=== PATIENT | male | born 1950 | race Caucasian/White ===

== ENCOUNTER → 2016-08-25 | Outpatient (CLI) | payer OTHER ==
[~2016-08-25] VITALS: Ht 185.4 cm; Wt 111.9 kg
[~2016-08-25] MED LIST: ASPIR 8181 MG PO; LIPITOR10 MG PO; LISINOPRIL-HCT1 EAC2 PO; MOBIC15 MG PO; NEXIUM40 MG PO
--- NOTE | ~2016-08-25 | HPC ---
[facility] [address] [place] [address] PAIN MANAGEMENT CONSULTATION Name: ROSEY BOLES Room #: REG CATARINO Matias#: [id number] Admission: 08/25/16 Attend Phys: Roldan Trinidad DO Discharge: Date of : 48 Report #: [id number] THIS REPORT FOR: //name// CC: Maxx Trinidad HISTORY OF PRESENT ILLNESS: The patient is a pleasant 66-year-old gentleman being treated for symptomatic lumbar spondylosis. Had a diagnostic L4-L5 and L5-S1 facet joint injections 08/19/2016 (bilateral) with good yet transient relief of symptoms. He presents to pain clinic today for a medial branch dorsal rami diagnostic block of the L4-L5 and L5-S1 facet joints (medial branch dorsal rami L3, L4 and L5). We discussed risks and benefits today including lack of efficacy. If the patient has good transient relief will move forward with radiofrequency neurolysis of the most problematic side. ASSESSMENT: Symptomatic lumbar spondylosis. PROCEDURE: After written informed consent was obtained, the patient was taken to the fluoroscopy suite and placed in prone position. After sterile prep and drape, skin was raised. A 22-gauge stylet needle was placed to contact the right sacral alar notch corresponding to the L5 dorsal rami. Second needle was placed lateral to the superior articular process of L5, adjacent to the L4-L5 facet joint (corresponding to the L4 medial branch dorsal rami, third needle was placed lateral to the L4 superior articular process lateral to the L3-L4 facet joint) (corresponding to the L3 medial branch dorsal rami). AP and lateral projections showed good needle placement. A 1 mL of 50:50 mix of 0.5% preservative-free bupivacaine plus 1.5% preservative-free Xylocaine with 1:200,000 was injected at each site. All 3 needles removed. C-arm was turned then turned oblique to the left and the procedure was repeated on the left side. After all six needles removed. The area was cleansed, Band-Aids applied. The patient was monitored for an appropriate period of time, discharged in good and stable condition. I was pleased to notice his pain score was 0 on discharge, had been 3-4 on a 0-10 visual analog scale on admission. I will plan on moving forward 09/02/2016 with RFL of the subjective worst side at that time. Fluoroscopy time was 20 seconds. By: [id number] Roldan Trinidad DO /nt
[2016-08-25 14:59] VITALS: BP 104/74
== END | disposition home or self-care (01) ==
LOC: PAIN 06:48
DX: M47.816 Spondylosis without myelopathy or radiculopathy, lumbar region (principal)

== ENCOUNTER → 2016-09-02 | Outpatient (CLI) | payer OTHER ==
[~2016-09-02] VITALS: Ht 182.9 cm; Wt 112.8 kg
[2016-09-02 13:49] VITALS: BP 109/80
== END | disposition home or self-care (01) ==
LOC: PAIN 06:55
DX: M47.816 Spondylosis without myelopathy or radiculopathy, lumbar region (principal); M54.5 Low back pain; Z79.82 Long term (current) use of aspirin; Z79.899 Other long term (current) drug therapy; Z98.890 Other specified postprocedural states

== ENCOUNTER → 2016-09-16 | Outpatient (CLI) | payer OTHER ==
[~2016-09-16] VITALS: Ht 185.4 cm; Wt 112.8 kg
[~2016-09-16] MED LIST changes: +TRAMADOL 50 MG50 MG PO
[2016-09-16 13:09] VITALS: BP 117/83
== END | disposition home or self-care (01) ==
LOC: PAIN 06:56
DX: M47.896 Other spondylosis, lumbar region (principal); E66.09 Other obesity due to excess calories; Z68.32 Body mass index [BMI] 32.0-32.9, adult; Z79.82 Long term (current) use of aspirin; Z79.899 Other long term (current) drug therapy; Z98.890 Other specified postprocedural states

== ENCOUNTER → 2017-04-10 | Outpatient (CLI) | payer OTHER ==
[~2017-04-10] VITALS: Ht 185.4 cm; Wt 113.4 kg
[~2017-04-10] MED LIST changes: +BENADRYL25 MG PO; +GLUCOSAMINE HC500 MG PO; +HYDROCODONE-AP1 EAC6 PO; +IBUPROFEN 400400 M1 PO; +NORVASC5 MG PO; +UNICOMPLEX M TA1 TA1 PO; +VENTOLIN HFA 1818 GM INH
--- NOTE | ~2017-04-10 | HPC ---
[facility] [address] [place] [address] PAIN MANAGEMENT CONSULTATION Name: ROSEY BOLES Room #: REG [facility] Andrew.#: [id number] Admission: 04/10/17 Attend Phys: Roldan Trinidad DO Discharge: Date of : 48 Report #: [id number] THIS REPORT FOR: //name// CC: Maxx Trinidad DATE OF SERVICE: 04/10/2017 PAIN CLINIC NOTE The patient is a 66-year-old gentleman, prior seen in the pain clinic back in September for lumbar radicular pain. We had tried RFL with nominal efficacy facet joint injections have afforded a little bit better relief. Somewhat lost to follow up, returns to pain clinic today with a new complaint that being pain in the left shoulder. Denies antecedent trauma or overuse. He rates pain as 6 with movement, primarily movement of the left shoulder. He states the pain has actually been ongoing since about 2015. It seems to be getting worse with activity. PHYSICAL EXAMINATION: Shows 66-year-old gentleman, BMI is 33 kilograms per meter squared, blood pressure is elevated today 153/100, pulse 90, respirations 16. Cervical range of motion is full. Left shoulder shows pain with active and passive range of motion. He has tried physical therapy with really no efficacy. Meloxicam has afforded no change, though he does note that when he stops meloxicam, pain does get worse. Hand grasp is symmetric. Pain with palpation over the AC joint. ASSESSMENT: Symptomatic left shoulder degenerative joint disease by clinical exam and history. RECOMMENDATION: 1. Continue meloxicam. 2. Left shoulder injection under fluoroscopy today. 3. Follow up as needed. Continue physical therapy. PROCEDURE: Left shoulder injection under fluoroscopy. PROCEDURE NOTE: After written informed consent was obtained, the patient was taken to the fluoroscopy suite, placed in supine position. Skin overlying the shoulder was cleansed with ChloraPrep. Skin wheal with Xylocaine was raised. A 22-gauge stylet needle was placed to contact the proximal aspect of the humerus adjacent to the glenohumeral joint. Negative aspiration was accomplished. A 1 mL of Omnipaque injected, which showed spread within the joint. This was followed with 40 mg triamcinolone with 2 mL of 0.5 preservative-free bupivacaine. Needle was removed. The area was cleansed and Band-Aids applied. The patient was monitored for an appropriate period [place] [address] PAIN MANAGEMENT CONSULTATION Name: ROSEY BOLES Room #: REG CLI Polly#: [id number] Admission: 04/10/17 Attend Phys: Roldan Trinidad DO Discharge: Date of : 48 Report #: [id number] and stable condition, noting significant improvement in baseline pain, in fact noting pain was absent on discharge. <ELECTRONICALLY SIGNED> By: Roldan Trinidad DO 04/12/17 1417 1636 2222 Roldan Trinidad DO /bk
[2017-04-10 10:44] VITALS: BP 153/100
== END | disposition home or self-care (01) ==
LOC: PAIN 07:03
DX: M19.012 Primary osteoarthritis, left shoulder (principal); Z68.33 Body mass index [BMI] 33.0-33.9, adult

== ENCOUNTER → 2017-06-30 | Outpatient (CLI) | payer OTHER ==
[~2017-06-30] VITALS: Ht 182.9 cm; Wt 115.2 kg
[~2017-06-30] MED LIST changes: -HYDROCODONE-AP1 EAC6 PO; -IBUPROFEN 400400 M1 PO; -VENTOLIN HFA 1818 GM INH
--- NOTE | ~2017-06-30 | HPC ---
[facility] [address] [place] [address] PAIN MANAGEMENT CONSULTATION Name: BOLESROSEY Room #: REG CATARINO Morales.#: [id number] Admission: 06/30/17 Attend Phys: Roldan Trinidad DO Discharge: Date of : 48 Report #: [id number] THIS REPORT FOR: //name// CC: Maxx Trinidad HISTORY OF PRESENT ILLNESS: The patient is a pleasant 66-year-old gentleman who has been treated for lumbar spondylosis without myelopathy and bilateral shoulder DJD/osteoarthritis. We had treated lumbar facets last summer in 07/2016 and 08/2016 culminating in radiofrequency neurolysis on 09/02. He did well subsequent. He was seen in April of this year with ongoing shoulder issues. We progressed to do a left shoulder joint injection under fluoroscopy. The patient noted recurrent symptoms and had called for followup requesting repeat shoulder joint injection. He had noted 50% relief from the left shoulder. He presents to the pain clinic today with new complaint that being pain in right glute down the posterior leg down to the foot. Pain is exacerbated with standing, walking and bending. He notes a dull aching pain, rates it a 10 on a VAS. Denies antecedent trauma and overuse. He has continued with nonsteroidal anti-inflammatory medication (Meloxicam 15 mg 1 a day). Continue range of motion exercise and stretch with nominal efficacy. PHYSICAL EXAMINATION: Shows 66-year-old gentleman, BMI is 34.4 kilograms per meter squared. Blood pressure is modestly elevated at 159/96, pulse 94 and respirations 16. Rises from chair using armrest. Has a modestly antalgic gait. Grossly positive straight leg raise at 30 degrees on the right. Right dorsiflexion and lower extremity extension strength is diminished and it does exacerbate pain. Right Achilles reflex is diminished compared to the left. Patellar reflex is generally symmetric. There are no recent diagnostic studies available for evaluation at this time. ASSESSMENT: 1. Symptomatic lumbar radiculopathy by clinical exam and history, right L5 distribution. 2. Osteoarthritis, left shoulder, incremental improvement following prior injection. 3. Lumbar spondylosis without myelopathy. Symptoms remain relatively quiescent subsequent to prior RFL. RECOMMENDATIONS: 1. Continue meloxicam unchanged. 2. Follow up as needed for left shoulder injection if indicated. 3. Epidural injection under fluoroscopy today at L5-S1. PROCEDURE: Lumbar epidural injection under fluoroscopy. PROCEDURE NOTE: After both written and informed consent to include risk of [address] [address] PAIN MANAGEMENT CONSULTATION Name: ROSEY BOLES Room #: REG CLI Polly#: [id number] Admission: 06/30/17 Attend Phys: Roldan Trinidad DO Discharge: Date of : 48 Report #: [id number] spinal cord damage, increased pain, weakness and dural puncture, the patient was taken to the fluoroscopy suite, placed in the prone position. After sterile prep and drape, a skin wheal with lidocaine was raised. A 22-gauge epidural Tuohy needle was inserted in the midline at L5-S1 with good loss to resistance. Negative aspiration for cerebrospinal fluid or blood was noted. Then 1 mL of Omnipaque under biplanar fluoroscopy showed good spread within the epidural space. This was followed with 80 mg of triamcinolone plus 1 mL of 1.5% preservative-free Xylocaine, 0.5 mL Xylocaine was then injected to flush the needle; it was removed. The patient was monitored for an appropriate period of time and discharged in good and stable condition. <ELECTRONICALLY SIGNED> By: Roldan Trinidad DO 07/03/17 0830 1514 0206 Roldan Trinidad DO /nt
[2017-06-30 12:47] VITALS: BP 159/96
== END | disposition home or self-care (01) ==
LOC: PAIN 05-04 13:19
DX: M54.16 Radiculopathy, lumbar region (principal); M47.896 Other spondylosis, lumbar region; M19.012 Primary osteoarthritis, left shoulder; Z79.82 Long term (current) use of aspirin; Z79.899 Other long term (current) drug therapy; Z98.890 Other specified postprocedural states

== ENCOUNTER → 2017-07-17 | Outpatient (CLI) | payer OTHER ==
[~2017-07-17] VITALS: Ht 182.9 cm; Wt 111.6 kg
[~2017-07-17] MED LIST changes: +VENTOLIN HFA 1818 GM INH
--- NOTE | ~2017-07-17 | HPC ---
[facility] [address] [place] [address] PAIN MANAGEMENT CONSULTATION Name: ROSEY BOLES Room #: REG Liliana Morales.#: [id number] Admission: 07/17/17 Attend Phys: Roldan Trinidad DO Discharge: Date of : 48 Report #: [id number] THIS REPORT FOR: //name// CC: Maxx Trinidad DATE OF SERVICE: 07/17/2017 PAIN CLINIC NOTE HISTORY OF PRESENT ILLNESS: The patient is a 66-year-old gentleman, last seen on 06/30/2017 diagnosed with symptomatic lumbar radiculopathy, component of lumbar and lumbosacral spondylosis without myelopathy to the bilateral shoulder osteoarthritis. Last seen in the pain clinic on 06/30/2017, we did an epidural injection L5-S1. Returns to pain clinic today noting that the procedure afforded 90% relief for 4 days with pain returned. He feels it may be worst in the right buttock, lateral thigh, lateral calf, ankle to toes, and feels like the foot is asleep. PHYSICAL EXAMINATION: Shows a 66-year-old gentleman, BMI 33.4 kilograms per meter squared, blood pressure is 143/79, pulse 86, respirations 16. Rises from chair using armrest, modestly antalgic gait, positive straight leg raise on the right. Objective decreased strength in the right lower extremity to dorsiflexion and hip flexion. DIAGNOSTIC STUDIES: There are no recent diagnostic studies available for evaluation at this time. The patient is anxious to travel to [place] this weekend. His son is graduating from [employer]. 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 Discussion with the patient today about therapeutic options. RECOMMENDATIONs: We will get an MRI of the lumbar spine. May benefit from repeat epidural injection, but will want more of a targeted approach perhaps left L4 or L5 transforaminal epidural injection depending on MRI and clinical findings. The patient does have some tramadol which he can take. He is taking it with nominal efficacy. I offered the hydrocodone tablet, but he was loathed stronger opiate analgesics. I suggest he continue with tramadol taken concurrently with a single extra strength Tylenol. There is some Synergy with this agent. We will order the MRI of the lumbar spine for right L4-L5 radiculopathy. Follow [address] [address] PAIN MANAGEMENT CONSULTATION Name: ROSEY BOLES Room #: REG CATARINO Matias#: [id number] Admission: 07/17/17 Attend Phys: Roldan Trinidad DO Discharge: Date of : 46 Report #: [id number] up next week for consideration for transforaminal epidural injection under fluoroscopy. Again, guided by imaging. Discharged in good and stable condition. By: 1115 15 Roldan Trinidad, DO /nt
[2017-07-17 09:48] VITALS: BP 143/79
== END ==
LOC: PAIN 06:52
DX: M47.817 Spondylosis without myelopathy or radiculopathy, lumbosacral region (principal); M54.16 Radiculopathy, lumbar region; M19.012 Primary osteoarthritis, left shoulder; M19.011 Primary osteoarthritis, right shoulder

== ENCOUNTER → 2017-07-18 | Outpatient (CLI) | payer OTHER | LOC: MRI 06:29 | DX: M54.16 Radiculopathy, lumbar region (principal); M47.897 Other spondylosis, lumbosacral region; M47.896 Other spondylosis, lumbar region; M48.061 Spinal stenosis, lumbar region without neurogenic claudication; M51.26 Other intervertebral disc displacement, lumbar region ==

== ENCOUNTER → 2017-07-24 | Outpatient (CLI) | payer OTHER ==
[~2017-07-24] VITALS: Ht 182.9 cm; Wt 111.6 kg
[~2017-07-24] MED LIST changes: +IBUPROFEN 400400 M1 PO
--- NOTE | ~2017-07-24 | HPC ---
[facility] [address] [place] [address] PAIN MANAGEMENT CONSULTATION Name: ROSEY BOLES Room #: REG CATARINO Morales.#: [id number] Admission: 07/24/17 Attend Phys: Roldan Trinidad DO Discharge: Date of : 48 Report #: [id number] THIS REPORT FOR: //name// CC: Maxx Trinidad HISTORY OF PRESENT ILLNESS: The patient is a pleasant 66-year-old gentleman, prior seen in the pain clinic on 07/17/2017. The patient has history of lumbar radiculopathy, lumbosacral spondylosis without myelopathy. He was getting ready to travel to [place], his son was graduating from [employer]. He is pleased to note that his son has returned to [place] to do an Internal Medicine residency at . At last visit, I ordered MRI of the lumbar spine due to ongoing lumbar radicular symptoms in a right L4 pattern. The patient presents to pain clinic today. Pain continues to be ongoing in the right low back, buttock and lateral leg. I reviewed the MRI from 07/18/2017, which does note severe hypertrophic posterior facet degenerative changes at L4-L5 resulting in bilateral neural foraminal narrowing. L5-S1 notes severe hypertrophic facet changes as well. ASSESSMENT: Symptomatic lumbar radiculopathy by clinical exam and history, right L4 and history of lumbar spondylosis without myelopathy and osteoarthritis affecting bilateral shoulders, relatively quiescent at present. RECOMMENDATION: Right L4-L5 transforaminal epidural injection today and follow simply as needed. PROCEDURE NOTE: PROCEDURE: Transforaminal lumbar epidural injection under fluoroscopy. DESCRIPTION OF PROCEDURE NOTE: After both written and informed consent was obtained including risk of spinal cord damage, infection, increased pain and paralysis, the patient agreed to proceed. The patient was taken to the fluoroscopy suite, placed in a prone position with appropriate abdominal bolstering. After sterile prep with ChloraPrep and sterile drape, a skin wheal with 1% Xylocaine was raised. A 22 gauge 4-1/2 inch epidural Tuohy needle was inserted. From an oblique approach into the posterior-superior aspect of the right L4-L5 neural foramen with continuous pressure on the glass syringe plunger for loss of resistance. Glass syringe was filled with 2 cc of 0.1 Xylocaine. The glass loss of resistance syringe was removed. A low volume extension tubing was connected, negative aspiration was accomplished for cerebrospinal fluid or blood. 1 mL of Omnipaque was injected which showed spread both within the epidural space and laterally along the nerve root. This was followed with 80 mg of triamcinolone plus 1 mL of 1.5% preservative-free Xylocaine. Needle was partially withdrawn, 0.5 mL of Xylocaine was injected to clear the needle and the needle was removed. The area was cleansed, band-aid was applied. The [address] [address] PAIN MANAGEMENT CONSULTATION Name: ROSEY BOLES Room #: REG CATARINO Matias#: [id number] Admission: 07/24/17 Attend Phys: Roldan Trinidad DO Discharge: Date of : 48 Report #: [id number] patient was allowed to ambulate to the recovery room, discharged in good and stable condition. <ELECTRONICALLY SIGNED> By: Roldan Trinidad DO 07/26/17 0729 1542 2116 Roldan Trinidad DO /nt
[2017-07-24 08:54] VITALS: BP 157/95
== END ==
LOC: PAIN 06:53
DX: M54.16 Radiculopathy, lumbar region (principal); G89.29 Other chronic pain; M19.011 Primary osteoarthritis, right shoulder; M19.012 Primary osteoarthritis, left shoulder; Z79.899 Other long term (current) drug therapy; Z79.82 Long term (current) use of aspirin

== ENCOUNTER → 2017-09-01 | Outpatient (CLI) | payer OTHER ==
[~2017-09-01] VITALS: Ht 182.9 cm; Wt 108.6 kg
[~2017-09-01] MED LIST changes: +HYDROCODONE-AP1 EAC6 PO
--- NOTE | ~2017-09-01 | HPC ---
[facility] [address] [place] [address] PAIN MANAGEMENT CONSULTATION Name: BOLESROSEY Room #: REG Liliana Morales.#: [id number] Admission: 09/01/17 Attend Phys: Roldan Trinidad DO Discharge: Date of : 46 Report #: [id number] THIS REPORT FOR: //name// CC: Maxx Trinidad HISTORY OF PRESENT ILLNESS: The patient is a very pleasant 67-year-old gentleman, prior seen in the pain clinic on 07/24/2017. We did a right L4-L5 transforaminal epidural injection with, per the patient, 100% relief for 1 month. Pain has gradually begun to recur without antecedent trauma. It does radiate down the right leg with significant impact. Rates the pain at 10 on a VAS, exacerbated with sitting, standing or walking. The patient states he did do a fair bit of driving and this may have correlated temporally with recurrence of pain. PHYSICAL EXAMINATION: GENERAL: Notes a 67-year-old gentleman. VITAL SIGNS: BMI is 32.5 kilograms per meter squared. Vital signs stable as noted in the EMR. MUSCULOSKELETAL: Rises from chair using armrest, markedly antalgic gait. Grossly positive straight leg raise on the right with slight decreased right hip flexion strength. RADIOLOGICAL DATA: Reviewed the MRI from 07/18/2017 noting L4-L5 to have severe hypertrophic posterior facet degenerative changes, revealing bilateral neural foraminal stenosis, L5-S1 similarly notes severe hypertrophic changes. ASSESSMENT: Symptomatic lumbar radiculopathy secondary to spinal stenosis. RECOMMENDATIONS: Right L4-L5 transforaminal epidural injection today, continue hydrocodone and tramadol p.r.n. Prescriptions were renewed for 45 hydrocodone and 75 tramadol. The patient does take ibuprofen [id number]. If symptoms do not significantly improve with interventional therapy, consider neurosurgical consult. PROCEDURE NOTE ASSESSMENT: Symptomatic lumbar radiculopathy secondary to spinal stenosis. PROCEDURE: Transforaminal epidural injection under fluoroscopy. DESCRIPTION OF PROCEDURE NOTE: After both written and informed consent was obtained including risk of spinal cord damage, infection, increased pain and paralysis, the patient agreed to proceed. The patient was taken to the fluoroscopy suite, placed in a prone position with appropriate abdominal bolstering. After sterile prep with ChloraPrep and sterile drape, a skin wheal with 1% Xylocaine was raised. A 22 gauge 4-1/2 inch epidural [place] [address] PAIN MANAGEMENT CONSULTATION Name: ROSEY BOLES Room #: REG CLLiliana Matias#: [id number] Admission: 09/01/17 Attend Phys: Roldan Trinidad DO Discharge: Date of : 48 Report #: [id number] inserted. From an oblique approach into the posterior-superior aspect of the right L4-L5 neural foramen with continuous pressure on the glass syringe plunger for loss of resistance. Glass syringe was filled with 2 cc of 0.1 Xylocaine. The glass loss of resistance syringe was removed. A low volume extension tubing was connected, negative aspiration was accomplished for cerebrospinal fluid or blood. 1 mL of Omnipaque was injected which showed spread both within the epidural space and laterally along the nerve root. This was followed with 80 mg of triamcinolone plus 1 mL of 1.5% preservative-free Xylocaine. Needle was partially withdrawn, 0.5 mL of Xylocaine was injected to clear the needle and the needle was removed. The area was cleansed, Band-Aid was applied. The patient was allowed to ambulate to the recovery room, discharged in good and stable condition. <ELECTRONICALLY SIGNED> By: Roldan Trinidad DO 09/04/17 0706 1534 2312 Roldan Trinidad DO /nt
[2017-09-01 10:24] VITALS: BP 121/79
== END | disposition home or self-care (01) ==
LOC: PAIN 08:39
DX: M54.16 Radiculopathy, lumbar region (principal); M48.061 Spinal stenosis, lumbar region without neurogenic claudication; G89.29 Other chronic pain; Z79.899 Other long term (current) drug therapy; Z79.82 Long term (current) use of aspirin; Z98.890 Other specified postprocedural states

== ENCOUNTER → 2018-01-12 | Outpatient (CLI) | payer OTHER ==
[~2018-01-12] VITALS: Ht 185.4 cm; Wt 108.9 kg
[~2018-01-12] MED LIST changes: +MEDROLDOSEPACK PO; +VOLTAREN GEL 1100 G1 TOP
[2018-01-12 11:29] VITALS: BP 138/96
== END ==
LOC: PAIN 06:54
DX: M25.512 Pain in left shoulder (principal); M25.511 Pain in right shoulder; G89.29 Other chronic pain; M79.671 Pain in right foot; M79.604 Pain in right leg; M54.5 Low back pain; Z79.899 Other long term (current) drug therapy

== ENCOUNTER → 2018-06-06 | Outpatient (CLI) | payer OTHER ==
[~2018-06-06] VITALS: Ht 185.4 cm; Wt 111.9 kg
[2018-06-06 09:27] VITALS: BP 126/83
--- NOTE | 2018-06-06 09:40 | NUR ---
Pain Clinic Assessment: 1. History of Osteoarthritis: B/L HANDS History of Rheumatoid Arthritis: NONE 2. Height: 6 ft. 1 in. 185.4 cm. Weight: 246.6 lb. oz. 111.857 kg. Patient's BMI: 32.5 3. Vital Signs: BP: 126/83 Pulse: 95 Resp: 16 Temp: 02 Sat: 96 ECG Mon: 4. Pain Intensity: 0 5. Fall Risk: Dizziness: N Needs help standing or walking: N Fallen in the last 3 months: N Fall risk comments: 6. Patient on Blood Thinner: None 7. History of Hypertension: Y 8. Opioid Therapy greater than 6 weeks: N Opiate Contract Signed: 9. Risk Assessment Tool Provided: 0-LOW 10. Functional Assessment Tool: 61/70 11. Recreational Drug Use: Never Drug Type: Tobacco Use: Never Smoker Tobacco Type: Amount or Packs/day: How Many Years: Alcohol Use: No Frequency: Quant:
--- NOTE | 2018-06-07 09:12 | HPC ---
[facility] [address] [place] [address] PAIN MANAGEMENT CONSULTATION Name: BOLESROSEY Room #: REG [facility] M.Tremaine.#: [id number] Admission: 06/06/18 ������������������ Attend Phys: Savi Trejo Discharge: ������������������ Date of : 46 Report #: [id number] THIS REPORT FOR: //name// CC: Savi Trejo Maxx Whitfield DATE OF SERVICE: 06/06/2018 CHIEF COMPLAINT: Pain in multiple joints. HISTORY OF PRESENT ILLNESS: This is a very pleasant gentleman of 67 years old. He has been followed in the pain clinic for quite some time for his pain involving multiple joints, most specifically his shoulders, hands, hips. Does not complain of leg pain today. Does have pain some across in his lower back. He finds that if he takes a tramadol every morning and 1 ibuprofen of 200 mg, he does very well. He does take some meloxicam at night and this has been able to control his back pain. He has seen a surgeon recently who informed him that if he is able to control his pain with his medication, he would not recommend surgery at this time. The patient tells me his pain score is 0 currently and so therefore not thinking about having surgery for his back pain. He tells me his pain is worse with activity and walking and his medication as I stated is very helpful and would like a refill of that today. ALLERGIES: No known drug allergies. CURRENT MEDICATIONS: Tramadol 50 mg every 4 hours p.r.n., lisinopril/hydrochlorothiazide 20/25 mg daily, ibuprofen 200 mg daily, glucosamine 500 mg daily, multivitamin daily, Nexium 40 mg daily, Lipitor 10 mg daily and meloxicam 15 mg at bedtime. PQRS: 1. He has osteoarthritis in his hands and hips. He denies any rheumatoid arthritis. 2. Height is 6 feet 1 inch, weight is 246, BMI is 32. 3. Vital signs: Blood pressure 126/83, pulse is 95, respirations 16, oxygen sat is 96%. 4. Pain score is 0/10. 5. Fall risk. He denies dizziness. Does not need help walking or standing. Has not fallen in the last 3 months. 6. The patient is not on any blood thinners. He does take medicine for hypertension. 7. Opiate therapy is greater than 6 weeks, but he does not have an opioid signed contract on her chart. He takes his medication very sparingly. Risk assessment tool is low. His functional assessment is 61/70. 8. Recreational drug use, he denies. He is not a smoker and does not drink alcohol. We did check the prescription monitoring system. The patient last [address] [address] PAIN MANAGEMENT CONSULTATION Name: ROSEY BOLES Room #: REG [facility] Matias#: [id number] Admission: 06/06/18 ������������������ Attend Phys: Savi Trejo Discharge: ������������������ Date of : 46 Report #: [id number] filled his tramadol in April from Dr. Garcia. PHYSICAL EXAMINATION: GENERAL: This is a well-developed, well-nourished white gentleman who appears his stated age of 67. He is a good historian. HEENT: Normocephalic, atraumatic. Extraocular eye muscles are intact. Mucous membranes are moist. NECK: Without adenopathy or JVD. EXTREMITIES: Upper extremity strength judged to be 5/5 in his upper extremities. MUSCULOSKELETAL: Without significant scoliosis, kyphosis or lordosis. He does have pain in his bilateral hands and also in his hips today and also complains of some shoulder pain. IMPRESSION: 1. Facet joint dysfunction, L5-S1. 2. Hypertension. 3. Obstructive sleep apnea. 4. Spinal stenosis. 5. Osteoarthritis. We reviewed the fact that opiate medications are being used to provide analgesia adequate to support activities of daily living, not attempting to achieve a specific pain score on the 0-10 Visual Analog Scale. The current opiate medications are providing sufficient analgesia to allow the patient to participate in activities of daily living. The patient is not exhibiting any aberrant behavior suggestive of drug diversion. The patient is not having any adverse reactions to medications. The patient is not suffering from daytime somnolence or mental acuity changes. The patient is managing opiate-induced constipation with appropriate [id number] agents and dietary considerations. The patient was counseled on concern for caution with operating a motor vehicle while using opiate medications. A physical exam was performed and the patient's functional status was evaluated. All patients with back pain were advised against the bed rest greater than 4 days and were advised to return to normal activities. Pain score assessment was noted and the treatment plan was reviewed with the patient. All current medications, both prescribed and OTC were reviewed and reconciled on the electronic medical record. Tobacco screening was accomplished and smoking cessation was advised when indicated. BMI was noted and diet/exercise modification was recommended for all patients following outside normal parameters. I reviewed with the patient today their responsibilities to safeguard prescription medications, reviewed their responsibility to utilize medications only as prescribed by the physician. They are to seek and receive pain [address] [address] PAIN MANAGEMENT CONSULTATION Name: ROSEY BOLES Room #: REG CLLiliana Morales.#: [id number] Admission: 06/06/18 ������������������ Attend Phys: Savi Trejo Discharge: ������������������ Date of : 46 Report #: [id number] medications only from 1 physician group ( [facility]). They are to use 1 pharmacy and keep the clinic informed if they change pharmacies. Their responsibilities include making followup visits in a timely fashion and to avoid abrupt discontinuation of medication usage. Their responsibilities further include bringing their medications (bottles from the pharmacy with residual pills) to the visit for possible confirmation of pill counts and the patient understands it is their responsibility to submit to random drug screens to ensure both that the medications prescribed are present, and that no other controlled substances are present. All prescriptions provided today were generated electronically. PLAN: 1. We discussed treatment options with the patient today. The patient tells me that he takes one tramadol in the morning and this is very beneficial in controlling his pain. He is here only for his tramadol refill. I did instruct the patient that he could ask his primary care doctor to fill this medication; therefore, he would not have to come and see us on a regular basis, that he can still come and see us if he needs to for periodic injections. The patient tells me that he sees Dr. Whitfield and he will see him in August and ask him at that time. The patient tells me he lives quite away from here, so he was considering transferring to a different pain clinic for refill of his medications, but he would like to get them from Dr. Whitfield if able. Script is given today for tramadol 50 mg, #90, with one additional refill. This should last the patient 6 months for his medication. 2. I did instruct the patient to use his ibuprofen sparingly. He does take meloxicam 15 mg at bedtime. He informed me he only takes 1 ibuprofen in the morning. I did discuss the risks of stomach issues as well as kidney issues with taking too much anti-inflammatory. The patient finds this is very beneficial and will not increase his nonsteroidals past where he is today. 3. The patient will make an appointment when he feels like he needs to for another transforaminal injection by Dr. Garcia. 4. The patient is seen with Dr. Garcia who collaborated care also today. ��������������������������������������������� <ELECTRONICALLY SIGNED> ���������������������������������������� By: Savi Trejo ��������������������������������������������� 06/07/18 0912 [id number] Savi Trejo /nt
== END ==
LOC: PAIN 06:47
DX: M48.061 Spinal stenosis, lumbar region without neurogenic claudication (principal); M19.90 Unspecified osteoarthritis, unspecified site; M53.3 Sacrococcygeal disorders, not elsewhere classified; G47.33 Obstructive sleep apnea (adult) (pediatric); I10 Essential (primary) hypertension; Z79.899 Other long term (current) drug therapy

== ENCOUNTER → 2018-07-13 | Outpatient (CLI) | payer OTHER ==
[2018-07-13 10:15] LABS: CALCIUM 9.7 mg/dL (8.5-10.1); CREATININE 1.3 mg/dL (0.7-1.3); POTASSIUM 4.2 mmol/L (3.5-5.1)
== END ==
LOC: CAT 09:37
PROVIDERS: Nurse Practitioner
DX: J18.9 Pneumonia, unspecified organism (principal); J98.4 Other disorders of lung